=== PATIENT | female | born 1960 ===

== ENCOUNTER 2024-10-20 06:38 | Day surgery (SDC) | payer BC, SELFPAY | END 2024-10-20 11:17 | disposition home or self-care (01) | LOC: GI 06:38 | PROVIDERS: ATTENDING PHYSICIAN Internal Medicine | DX: Z12.11 Encounter for screening for malignant neoplasm of colon (principal); K57.30 Diverticulosis of large intestine without perforation or abscess without bleeding; K64.8 Other hemorrhoids; D12.3 Benign neoplasm of transverse colon; K63.5 Polyp of colon; Z86.0100 Personal history of colon polyps, unspecified | CPT/HCPCS: 45385; 45380; 88305 ==

== ENCOUNTER → 2024-10-25 13:05 | Outpatient (REF) | payer BC, SELFPAY | LOC: HWRAD 13:05 | PROVIDERS: ATTENDING PHYSICIAN Nurse Practitioner Family | DX: M25.512 Pain in left shoulder (principal); M75.52 Bursitis of left shoulder | CPT/HCPCS: 73030 ==

== ENCOUNTER 2025-01-20 09:58 | Outpatient (RCR) | payer BC, SELFPAY | END 2025-01-20 23:59 | disposition home or self-care (01) | LOC: RPT 09:58 | PROVIDERS: ATTENDING PHYSICIAN Nurse Practitioner Family | DX: M75.52 Bursitis of left shoulder (principal); M25.512 Pain in left shoulder; Z73.6 Limitation of activities due to disability | CPT/HCPCS: 97010; 97110; 97112; 97140; 97161 ==

== ENCOUNTER 2025-02-18 09:59 | Outpatient (RCR) | payer BC, SELFPAY | END 2025-02-18 23:59 | disposition home or self-care (01) | LOC: RPT 09:59 | PROVIDERS: ATTENDING PHYSICIAN Nurse Practitioner Family | DX: M75.52 Bursitis of left shoulder (principal); M25.512 Pain in left shoulder; Z73.6 Limitation of activities due to disability; M54.2 Cervicalgia | CPT/HCPCS: 97010; 97110; 97112; 97140 ==

== ENCOUNTER 2025-03-21 14:15 | Outpatient (RCR) | payer BC, SELFPAY | END 2025-03-21 23:59 | disposition home or self-care (01) | LOC: RPT 14:15 | PROVIDERS: ATTENDING PHYSICIAN Nurse Practitioner Adult Health | DX: M25.562 Pain in left knee (principal); M25.561 Pain in right knee; M54.51 Vertebrogenic low back pain; Z73.6 Limitation of activities due to disability; G89.29 Other chronic pain; M62.81 Muscle weakness (generalized); M25.552 Pain in left hip; M25.551 Pain in right hip | CPT/HCPCS: 97110; 97112; 97140; 97162 ==

== ENCOUNTER 2025-04-08 09:30 | Outpatient (RCR) | payer BC, SELFPAY | END 2025-04-08 23:59 | disposition home or self-care (01) | LOC: RPT 09:30 | PROVIDERS: ATTENDING PHYSICIAN Nurse Practitioner Adult Health | DX: M25.562 Pain in left knee (principal); M25.561 Pain in right knee; M54.51 Vertebrogenic low back pain; Z73.6 Limitation of activities due to disability; G89.29 Other chronic pain; M62.81 Muscle weakness (generalized); M25.552 Pain in left hip; M25.551 Pain in right hip | CPT/HCPCS: 97110; 97112; 97140 ==